=== PATIENT | male | born 1995 | race African-American/Black ===

== ENCOUNTER 2022-05-07 00:30 | Emergency (ER) | payer OTHER ==
[~2022-05-07] VITALS: Ht 177.8 cm; Wt 78.0 kg
[2022-05-07] MEDS ORDERED: EPIN0.3P3 IM ×2 (00:37→03:19)
[2022-05-07] MEDS ORDERED: EPINEPHrine 1:1,000 [1 MG/ML] VIAL IM ONE (00:45)
[2022-05-07] MEDS ORDERED: MethylPREDNISolone SOD SUCC 125 MG/2 ML VIAL IVP ONE (00:45)
[2022-05-07] MEDS ORDERED: FAMOTIDINE 10 MG/ML 2 ML VIAL IVP ONE (00:45)
[2022-05-07] MEDS ORDERED: IPRATROPIUM BROMIDE 0.5 MG/2.5 ML NEB SOLUTION NEB ONE (00:45)
[2022-05-07] MEDS ORDERED: DiphenhydrAMINE HCL 50 MG/ML VIAL IVP ONE (00:45)
[2022-05-07] MEDS ORDERED: ALBUTEROL SULFATE 2.5 MG/0.5 ML NEB SOLUTION NEB ONE (00:45)
[2022-05-07] MEDS ORDERED: PRED-554 PO (03:19)
[2022-05-07 04:00] VITALS: BP 115/58
== END 2022-05-07 07:55 | disposition home or self-care (01) ==
LOC: EMS 00:32
DX: T78.01XA Anaphylactic reaction due to peanuts, initial encounter (principal); Z88.0 Allergy status to penicillin; Z91.013 Allergy to seafood; Z91.010 Allergy to peanuts; Z88.8 Allergy status to other drugs, medicaments and biological substances
CPT/HCPCS: 99291; 94060; 96374; 96375; 96372; 94640; J1200; J0171; J3490; J2930

== ENCOUNTER 2022-05-10 22:42 | Emergency (ER) | payer OTHER ==
[~2022-05-10] VITALS: Ht 182.9 cm; Wt 81.8 kg
[~2022-05-10 22:42] MED LIST: EPIN0.3P3 IM; PRED-554 PO
[2022-05-10 23:05] LABS: COVID AG,FIA SOURCE NASOPHARYNGEAL
[2022-05-10 23:28] LABS: INFLUENZA TYPE A NEGATIVE FOR TYPE A (NEGATIVE); INFLUENZA TYPE B NEGATIVE FOR TYPE B (NEGATIVE)
[2022-05-10] MEDS ORDERED: PredniSONE 20 MG TABLET PO ONE (23:45)
[2022-05-10] MEDS ORDERED: ALBUTEROL SULFATE 2.5 MG/0.5 ML NEB SOLUTION NEB ONE (23:45)
[2022-05-10] MEDS ORDERED: IPRATROPIUM BROMIDE 0.5 MG/2.5 ML NEB SOLUTION NEB ONE (23:45)
[2022-05-11 00:30] VITALS: BP 133/70
[2022-05-11] MEDS ORDERED: PRED-554 PO (00:35)
== END 2022-05-11 01:17 | disposition home or self-care (01) ==
LOC: EMS 22:42
DX: J45.909 Unspecified asthma, uncomplicated (principal); F12.90 Cannabis use, unspecified, uncomplicated; Z88.0 Allergy status to penicillin; Z88.8 Allergy status to other drugs, medicaments and biological substances; Z91.013 Allergy to seafood; Z91.010 Allergy to peanuts; Z20.822 Contact with and (suspected) exposure to COVID-19
CPT/HCPCS: 71046; 87804; 93005; 94640; 99285; J7613